=== PATIENT | female | born 1965 | race Caucasian/White ===

== ENCOUNTER 2018-02-07 08:38 | Inpatient (IN) | payer OTHER ==
[~2018-02-07] VITALS: Ht 162.6 cm; Wt 59.0 kg
[2018-02-07] MEDS ORDERED: MULTI VITAMIN1 EACH PO (09:28)
== END 2018-02-12 11:19 | disposition home or self-care, planned readmission (81) | DRG 743 ==
LOC: SURH 02-09 07:00 → O/R 02-09 08:30 → OB/GYN 02-09 08:30 → SURH 02-09 09:00 → OB/GYN 02-09 21:42
PROVIDERS: Obstetrics & Gynecology
PROC: 0UT90ZZ Resection of Uterus, Open Approach (ICD-10-PCS; principal; 2018-02-09 07:00)
PROC: 0UT70ZZ Resection of Bilateral Fallopian Tubes, Open Approach (ICD-10-PCS; 2018-02-09 07:00)
DX: D25.1 Intramural leiomyoma of uterus (principal); N93.8 Other specified abnormal uterine and vaginal bleeding